=== PATIENT | male | born 1950 | race Caucasian/White ===

== ENCOUNTER 2019-07-06 17:32 | Emergency (ER) | payer MEDICARE, OTHER ==
[2019-07-06] MEDS: Tetan/Diph/Pertus SYR(Tdap)* 0.5 ML SYR(BOOSTRIX) use SYR IM ONE (19:05)
--- OUTSIDE RECORDS SUMMARY | 2019-07-06 19:39 | XMS REPORT | Continuity of Care Document ---
:1950 External Reference #:[id number] Author Name Yelena Mckeon NP Address [address] [place] [address] Care Team Providers Name Role Phone Juan Jose Olea MD - Family Care Team Information Corporate Quality Manager Medicine Problems Description No Information Available Social History Type Date Description Comments Sex Unknown Tobacco Use Start: Unknown Nonsmoker Cigarette Use Pack Years: 59; 2ppd for 30 years ETOH Use Glass Of Wine Every Day Or Every Other Day Exercise Type/Frequency Exercises regularly walks daily Allergies, Adverse Reactions, Alerts Active Allergies Reaction Severity Comments Date Sulfa 06/30/2019 Medications Active Medications SIG Qnty Indications Ordering Provider Date Metformin HCL take one tablet Unknown 1000mg by mouth once a Tablets day Omeprazole 2 by mouth every Unknown 20mg Capsules day DR Amlodipine Besylate 1 by mouth every Unknown 2.5mg day Tablets Simvastatin take one tablet Unknown 40mg Tablets by mouth at bedtime Lisinopril 1 by mouth every Unknown 40mg Tablets day Multi Vitamin once daily otc Unknown Tablets Aspir-Low 1 by mouth every Unknown 81mg Tablets DR day Melatonin 1 by mouth every Unknown 10mg Capsules at bedtime Loratadine 1 by mouth every Unknown 10mg Capsules day Testosterone Cypionate Inject 1mL every Unknown two weeks 200mg/ml Solution Immunizations Description No Information Available Vital Signs Date Vital Result Comment 06/30/2019 9:20am BP Systolic 128 mmHg BP Diastolic 76 mmHg Heart Rate 68 /min Body Temperature 98.4 F Respiratory Rate 16 /min Height 72 inches 6'0" Weight 212.00 lb BMI (Body Mass Index) 28.7 kg/m2 Results Description No Information Available Procedures Date Code Description Status 11/02/2014 43382158 Colonoscopy Completed Medical Devices Description No Information Available Encounters Description No Information Available Assessments Date Code Description Provider 06/30/2019 E29.1 Testicular hypofunction Yelena Mckeon, ABBY 06/30/2019 I10 Essential (primary) hypertension Yelena Mckeon NP 06/30/2019 E78.2 Mixed hyperlipidemia Yelena Mckeon NP 06/30/2019 E11.9 Type 2 diabetes mellitus without complications Yelena Mckeon NP Plan of Treatment 06/30/2019 - Yelena Mckeon NPE29.1 Testicular hypofunctionComments:I would make no medication changes at this time. We can continue to give you your injection every 2 weeks.I10 Essential (primary) hypertensionComments:Call or return to the office if:* you get more than one blood pressure reading above 160 /100 (even if only one of the numbers is high)* you feel close to passing out or actually pass out* you have new or worsening swelling in the ankles, legs, hands, or face* you develop palpiatations or funny [id number] Mixed hyperlipidemiaComments:I would make no medication changes at this time.E11.9 Type 2 diabetes mellitus without complicationsComments:I would make no medication changes at this time.AllComments:1. Patient has been queried about patient's goals/preferences and functional/lifestyle goals at relevant visits. If relevant, describe: Has been discussed, noted above2. Treatment goals as explainedto the patient: see above3. Are there barriers to meeting treatment goals? Yes If Yes, please describe: Barriers include possible insurance limits, disease process, and difficulty with lifestyle changes4. Self- Management goals as described to the patient: Yes, see above As always, we strongly encourage a healthy diet and making physical activity a part of your every day life. If you have questions about how or where to start, please contact the office. Functional Status Description No Information Available Mental Status Description No Information Available Referrals Description No Information Available
--- NOTE | 2019-07-06 19:58 | ED ---
Laceration/Wound HPI - HPI Summary HPI Summary: Patient complains of laceration to palmar surface of left hand between the first digit and second digit. Tetanus status unknown. No anti-coag. - History of Current Complaint Stated Complaint: LT HAND LAC PER PT Time Seen by Provider: 07/06/19 18:28 Hx Obtained From: Patient Mechanism of Injury: Sharp/Blunt Trauma Onset/Duration: Sudden Onset Onset Severity: Mild Current Severity: None Pain Intensity: 0 Pain Scale Used: 0-10 Numeric Associated Signs & Symptoms: Negative - Allergy/Home Medications Allergies/Adverse Reactions: Allergies Allergy/AdvReac Type Severity Reaction Status Date / Time Sulfa (Sulfonamide Allergy Rash Verified 07/06/19 17:38 Antibiotics) PMH/Surg Hx/FS Hx/Imm Hx Endocrine/Hematology History: Denies: Hx Anticoagulant Therapy Cardiovascular History: Denies: Hx Pacemaker/ICD History: Denies: Hx Dialysis Sensory History: Denies: Hx Eye Prosthesis Opthamlomology History: Denies: Hx Legally Blind EENT History: Denies: Hx Deafness Neurological History: Denies: Hx Dementia Psychiatric History: Denies: Hx Autism Infectious Disease History: No Infectious Disease History: Denies: Traveled Outside the [place] in Last 30 Days - Family History Known Family History: Positive: Non-Contributory - Social History Alcohol Use: Occasionally Substance Use Type: Reports: None Smoking Status (MU): Unknown if Ever Smoked Review of Systems Constitutional: Negative Eyes: Negative ENT: Negative Cardiovascular: Negative Respiratory: Negative Gastrointestinal: Negative Genitourinary: Negative Musculoskeletal: Negative Skin: Other Neurological: Negative Psychological: Normal All Other Systems Reviewed And Are Negative: Yes Physical Exam - Summary Physical Exam Summary: Laceration to palmar surface of left hand medial to webbing between first and second digit. PMS intact distally Triage Information Reviewed: Yes Vital Signs On Initial Exam: Initial Vitals Temp Pulse Resp BP Pulse Ox 98.2 F 76 18 118/90 95 07/06/19 17:35 07/06/19 17:35 07/06/19 17:35 07/06/19 17:35 07/06/19 17:35 Vital Signs Reviewed: Yes Appearance: Positive: Well-Appearing Skin: Positive: Warm Head/Face: Positive: Normal Head/Face Inspection Eyes: Positive: Normal Neck: Positive: Supple Respiratory/Lung Sounds: Positive: Clear to Auscultation Cardiovascular: Positive: Normal Abdomen Description: Positive: Nontender Musculoskeletal: Positive: Normal Neurological: Positive: Normal Psychiatric: Positive: Normal AVPU Assessment: Alert - [place] Coma Scale Best Eye Response: 4 - Spontaneous Best Motor Response: 6 - Obeys Commands Best Verbal Response: 5 - Oriented Coma Scale Total: 15 Procedures - Laceration/Wound Repair 1 Location: upper extremity Description: Linear Anesthesia: Local Length, Depth and Shape: 3cm x .5cm Betadine Prep?: No - chlorhexidine Irrigated w/ Saline (ccs): 200 Laceration/Wound Explored: clean Debridement: minimal Suture Type: Prolene Number of Sutures: 4 - 4.0 Layer Closure?: No Sterile Dressing Applied?: No Diagnostics - Vital Signs Vital Signs Temp Pulse Resp BP Pulse Ox 07/06/19 17:35 98.2 F 76 18 118/90 95 - Laboratory Lab Statement: Any lab studies that have been ordered have been reviewed, and results considered in the medical decision making process. Laceration Repair Course/Dx - Course Course Of Treatment: Patient complains of laceration to palmar surface of left hand between the first digit and second digit. Tetanus status unknown. No anti -coag. Vital signs within normal limits. Wound cleaned and sutured. Tetanus booster administered - Clinical Impression Provider Diagnoses: Laceration Discharge ED - Sign-Out/Discharge Documenting (check all that apply): Patient Departure Patient Received Moderate/Deep Sedation with Procedure: No - Discharge Plan Condition: Stable Disposition: HOME Patient Education Materials: Care For Your Stitches (ED), Laceration (ED) Referrals: No Primary Care Phys,NOPCP [Primary Care Provider] - Additional Instructions: Sutures out in 10 days. May wash wound with warm running water and soap. Keep clean and dry protected when not washing. - Billing Disposition and Condition Condition: STABLE Disposition: Home - Attestation Statements Provider Attestation: I was available for consult. This patient was seen by the [facility]. The patient was not presented to, seen by, or examined by me. Juan Francisco Goncalves MD
[2019-07-06 20:21] VITALS: BP 139/86
== END 2019-07-06 20:20 | disposition home or self-care (01) ==
LOC: ED 17:32
DX: S61.412A Laceration without foreign body of left hand, initial encounter (principal); Z23 Encounter for immunization; W45.8XXA Other foreign body or object entering through skin, initial encounter; Y92.9 Unspecified place or not applicable; Z88.2 Allergy status to sulfonamides
CPT/HCPCS: 12002; 90471; 90715; 99282

== ENCOUNTER 2019-07-16 11:24 | Emergency (ER) | payer MEDICARE, OTHER ==
[2019-07-16 11:30] VITALS: BP 157/114
--- NOTE | 2019-07-16 12:20 | ED ---
Skin Complaint - HPI Summary HPI Summary: Patient is a 69-year-old male presenting to the ED with suture removal request. Sutures were placed 10 days ago. Sutures are placed over the thenar eminence of the palmar side of the left hand. [address] Clean dry and intact. No signs of infection. He has kept it wrapped over the past week. - History of Current Complaint Chief Complaint: EDLacSutureRecheck Time Seen by Provider: 07/16/19 11:46 Stated Complaint: STITCH REMOVAL PER PT Hx Obtained From: Patient Onset/Duration: Started Hours Ago Skin Exposure Onset/Duration: Hours Ago Timing: Constant Onset Severity: Moderate Current Severity: Moderate Pain Intensity: 0 Pain Scale Used: 0-10 Numeric Skin Location: Other: - hand Aggravating Symptom(s): Nothing Alleviating Symptom(s): Nothing Associated Signs & Symptoms: Negative Related History: Trauma - Allergy/Home Medications Allergies/Adverse Reactions: Allergies Allergy/AdvReac Type Severity Reaction Status Date / Time Sulfa (Sulfonamide Allergy Rash Verified 07/16/19 11:28 Antibiotics) PMH/Surg Hx/FS Hx/Imm Hx Previously Healthy: Yes Endocrine/Hematology History: Denies: Hx Anticoagulant Therapy Cardiovascular History: Denies: Hx Pacemaker/ICD History: Denies: Hx Dialysis Sensory History: Denies: Hx Eye Prosthesis, Hx Legally Blind, Hx Deafness Opthamlomology History: Denies: Hx Eye Prosthesis, Hx Legally Blind Neurological History: Denies: Hx Dementia Psychiatric History: Denies: Hx Autism Infectious Disease History: No Infectious Disease History: Denies: Traveled Outside the [place] in Last 30 Days - Family History Known Family History: Positive: Non-Contributory - Social History Occupation: Unemployed Lives: With Family Alcohol Use: Daily Alcohol Amount: 1 drink/day Hx Substance Use: No Substance Use Type: Reports: None Hx Tobacco Use: No Smoking Status (MU): Never Smoked Tobacco Review of Systems Constitutional: Negative Negative: Fever, Chills, Fatigue, Skin Diaphoresis Negative: Palpitations, Chest Pain Negative: Shortness Of Breath Negative: Arthralgia, Myalgia Positive: Other - suture removal Neurological: Negative All Other Systems Reviewed And Are Negative: Yes Physical Exam Triage Information Reviewed: Yes Vital Signs On Initial Exam: Initial Vitals Temp Pulse Resp BP Pulse Ox 99 F 80 20 157/114 97 07/16/19 11:26 07/16/19 11:26 07/16/19 11:26 07/16/19 11:26 07/16/19 11:26 Vital Signs Reviewed: Yes Appearance: Positive: Well-Appearing, Well-Nourished Skin: Positive: Skin Color Reflects Adequate Perfusion, Other - request for suture removal Head/Face: Positive: Normal Head/Face Inspection Eyes: Positive: EOMI, Conjunctiva Clear Neck: Positive: Supple Respiratory/Lung Sounds: Positive: Clear to Auscultation, Breath Sounds Present Cardiovascular: Positive: RRR, Pulses are Symmetrical in both Upper and Lower Extremities Musculoskeletal: Positive: Strength/ROM Intact Neurological: Positive: Speech Normal Psychiatric: Positive: Affect/Mood Appropriate Diagnostics - Vital Signs Vital Signs Temp Pulse Resp BP Pulse Ox 07/16/19 11:26 99 F 80 20 157/114 97 - Laboratory Lab Statement: Any lab studies that have been ordered have been reviewed, and results considered in the medical decision making process. Course/Dx - Course Course Of Treatment: During the course of treatment, 3 sutures were removed with good effect. Patient denies any pain. He is okay for discharge at this time and will continue to place antibiotic ointment if the area is dry. - Diagnoses Provider Diagnoses: Visit for suture removal Discharge ED - Sign-Out/Discharge Documenting (check all that apply): Patient Departure Patient Received Moderate/Deep Sedation with Procedure: No - Discharge Plan Condition: Stable Disposition: HOME Patient Education Materials: Stitches Removal (ED) Referrals: No Primary Care Phys,NOPCP [Primary Care Provider] - - Billing Disposition and Condition Condition: STABLE Disposition: Home
== END 2019-07-16 12:00 | disposition home or self-care (01) ==
LOC: ED 11:24
DX: Z48.02 Encounter for removal of sutures (principal); S61.412D Laceration without foreign body of left hand, subsequent encounter; X58.XXXD Exposure to other specified factors, subsequent encounter